=== PATIENT | male | born 1975 | race Caucasian/White ===

== ENCOUNTER 2018-06-06 07:47 | Outpatient (CLI) | payer BC, SELFPAY ==
[2018-06-06 09:36] LABS: Cholesterol 155 mg/dL (50-200); HDL Cholesterol 26 mg/dL (40-60); LDL CHOLESTEROL 93 mg/dL (<100); Triglyceride 228 mg/dL (30-150)
== END 2018-06-06 08:07 ==
PROVIDERS: PCP Nurse Practitioner; Visit Provider Nurse Practitioner
DX: E78.5 Hyperlipidemia, unspecified (principal)
CPT/HCPCS: 36415; 80061; 83721

== ENCOUNTER 2020-05-18 11:32 | Emergency (ER) | payer BC, SELFPAY ==
[2020-05-18] VITALS (39 sets, daily range): BP systolic 120–163; BP diastolic 64–88; PULSE 71–90; RESP 8–26; TEMP 37; O2SAT 94–97
--- NOTE | 2020-05-18 11:45 | RT.EKG_ITS ---
APPROVED REPORT Exam: Resting ECG Patient Location: E HR:92 bpm ECG Measurements Heart Rate 92 AXIS LA 169 P 52 QRSd 110 QRS 47 QT 377 T 12 QTc 465 Conclusion Sinus rhythm...normal P axis, V-rate 60- 99
--- NOTE | 2020-05-18 12:15 | DI.RAD_ITS ---
EXAM: XR CHEST 2V PA LATERAL CLINICAL HISTORY: chest pain TECHNIQUE: 2D digital imaging was performed. COMPARISON: CR CHEST 2 VIEWS PA,LAT from 03/26/2017 FINDINGS: MEDIASTINUM: Normal. HEART: Normal. PULMONARY VASCULATURE: Normal. LUNGS: Clear. PLEURAL SPACE: No pleural effusion or pneumothorax. BONE:Within normal limits for the patient's age. OTHER FINDINGS:Normal. IMPRESSION: No acute pulmonary findings. DATA REPOSITORY: RADIATION DOSE DELIVERED:
--- NOTE | 2020-05-18 12:38 | W.ED.GENAD ---
Discharge Plan Disposition Patient Disposition: HOME Condition: Stable Discharge Details Clinical Impression: Atypical chest pain Primary Care Provider: Ariane Joy ED Provider: Reji Franklin Home Meds and New Rx's Prescriptions: Continued atorvastatin 20 mg tablet 20 mg PO QHS Qty: 90 RF: 3 amlodipine 10 mg tablet 10 mg PO DAILY Qty: 90 RF: 3 metoprolol succinate 100 mg tablet extended release 24 hr 100 mg PO DAILY Qty: 90 RF: 3 olmesartan-hydrochlorothiazide 40-12.5 mg tablet 1 tab PO DAILY Qty: 90 RF: 3 aspirin [Lite Coat Aspirin] 325 MG tablet 325 mg PO DAILY Qty: 100 RF: 0 Discharge Instructions Instructions: Chest Pain (ED) Additional Instructions: continue your medication as previous directed return sooner for new or worsening symptoms Referrals: Ariane Joy NP [Primary Care Provider] - Medical Decision Making <Linda Abrams NP - Last Filed: 05/18/20 14:57> patient presents with brief episodes of pain in left chest, does not sound cardiac in nature, EKG unremarkable, read by Dr Franklin. will grab cardiac labs, added ddimer although PE low on diff list also. father of AAA in his 50's, unlikely cause of patients pain today. chest xray unremarkable. given asa 324 mg x1. vitals stable. possible tachy dysrhythmia but EKG and cardiac monitoring shows normal sinus rhythm. labs all reviewed and unremarkable. will repeat troponin in 3 hours. Medical Records Medical records reviewed: Yes I reviewed the patient's medical records. Lab Data Lab results reviewed: Yes I reviewed the patient's lab results. Lab results narrative: Laboratory Tests Range/Units 05/18/20 05/18/20 05/18/20 12:35 12:35 12:35 WBC (4.4-10.8) 10^3/uL 9.93 RBC (4.36-5.78) 10^6/uL 5.85 H Hgb (13.5-17.5) g/dL 17.1 Hct (40.0-50.0) % 50.1 H MCV (80-95) fL 85.6 MCH (27.0-33.0) pg 29.2 MCHC (32.0-36.0) % 34.1 RDW (11.8-14.1) % 13.5 Plt Count (130-400) 10^3/uL 289 MPV (8.0-11.0) fL 9.2 Immature Gran % 0.8 Neutrophils % 60.5 Lymphocytes % 26.4 Monocytes % 9.9 Eosinophils % 1.7 Basophils % 0.7 Nucleated RBC % % 0 Absolute Neutrophils (1.2-6.7) 10^3/uL 6.01 Absolute Lymphocytes (1.2-3.4) 10^3/uL 2.62 Absolute Monocytes (0.1-0.8) 10^3/uL 0.98 H Absolute Eosinophils (0.0-0.7) 10^3/uL 0.17 Absolute Basophils (0.0-0.2) 10^3/uL 0.07 D-Dimer (<500) ng/mlFEU 322 Sodium (136-145) mmol/L 135 L Potassium (3.5-5.1) mmol/L 3.7 Chloride (98-107) mmol/L 100 Carbon Dioxide (21.0-32.0) mmol/L 27.7 Anion Gap (3-11) mmol/L 7.3 BUN (7-18) mg/dL 17 Creatinine (0.70-1.30) mg/dL 1.28 Estimated GFR/1.73 m2 (mL/min/1.73m2) >= 60.00 Glucose (74-106) mg/dL 107 H Calcium (8.5-10.1) mg/dL 9.5 Magnesium (1.8-2.4) mg/dL 2.3 Total Bilirubin (0.2-1.0) mg/dL 0.4 AST (15-37) U/L 19 ALT (16-63) U/L 40 Alkaline Phosphatase (46-116) U/L 51 Troponin I (<0.06) ng/mL < 0.05 Total Protein (6.4-8.2) g/dL 8.3 H Albumin (3.4-5.0) g/dL 4.3 <Reji Franklin MD - Last Filed: 05/18/20 16:14> Patient seen, examined, discussed with Ms. Abrams. Remained symptom-free, repeat troponin obtained and negative. He will be discharged home. HPI <Linda Abrams NP - Last Filed: 05/18/20 14:57> General Date/Time Provider Initiated Documentation: 05/18/20 11:56. Limitations to Documentation: no limitations. Information obtained by: patient. HPI Narrative: onset on left sided chest pain that radiates from clavicle down, lasting approx 10 seconds 2 episodes back to back while standing. states he may have felt a little diaphoretic which quickly subsided. he denies nausea or shortness of breath. presents pain free. states he felt like his heart was beating fast after but that resolved spontaneously. reports one similar episode where he presented the [facility] [place] [facility] and had a cardiac work up including stress test which was negative. he denies smoking history, diabetes or dyslipidemia, takes 4 'blood pressure' meds and states he is out of one for the past week. denies fever cough or recent illness Related Data Home Medications Medication Instructions Recorded Confirmed aspirin [Lite Coat Aspirin] 325 mg PO DAILY #100 tab 03/27/17 05/18/20 atorvastatin 20 mg tablet 20 mg PO QHS #90 tab 01/05/19 05/18/20 amlodipine 10 mg tablet 10 mg PO DAILY #90 tab 01/09/20 05/18/20 metoprolol succinate 100 mg 100 mg PO DAILY #90 tab.er.24h 03/28/20 05/18/20 tablet,extended release 24 hr olmesartan 40 1 tab PO DAILY #90 tab-cap 03/28/20 05/18/20 mg-hydrochlorothiazide 12.5 mg tablet Previous Rx's Medication Instructions Recorded aspirin [Lite Coat Aspirin] 325 mg PO DAILY #100 tab 03/27/17 atorvastatin 20 mg tablet 20 mg PO QHS #90 tab 01/05/19 amlodipine 10 mg tablet 10 mg PO DAILY #90 tab 01/09/20 metoprolol succinate 100 mg 100 mg PO DAILY #90 tab.er.24h 03/28/20 tablet,extended release 24 hr olmesartan 40 1 tab PO DAILY #90 tab-cap 03/28/20 mg-hydrochlorothiazide 12.5 mg tablet Allergies Allergy/AdvReac Type Severity Reaction Status Date / Time lisinopril Allergy Intermediate hives Verified 05/18/20 12:17 Penicillins Allergy Intermediate rash Verified 05/18/20 12:17 General Stated Complaint: Chest Pain DAINA: 2 Review of Systems <Linda Abrams NP - Last Filed: 05/18/20 14:57> All systems reviewed & are unremarkable except as noted in HPI and below Constitutional Constitutional: Denies fever(s) ENT Ears, Nose, Mouth, and Throat: Denies vertigo and Denies dizziness Cardiovascular Cardiovascular: Reports chest pain, Reports chest pain at rest, Denies lightheadedness, Denies dyspnea and Denies dyspnea on exertion Respiratory Respiratory: Denies cough, Denies dyspnea and Denies dyspnea on exertion Gastrointestinal Gastrointestinal: Denies abdominal pain, Denies nausea and Denies vomiting Musculoskeletal Musculoskeletal: Denies arthralgias Integumentary/Breasts Skin/Breast: Denies lesions Neurologic Neurologic: Denies confusion, Denies vertigo and Denies dizziness Psychiatric Psychiatric: Denies confusion PFSH <Linda Abrams NP - Last Filed: 05/18/20 14:57> Medical History (Updated 05/18/20 @ 13:51 by Linda Abrams NP) Chest discomfort Went to ED, 2011. No abn per EKG, Echo. Stress echo (75% EF)(02/16/12). HLD (hyperlipidemia) HTN (hypertension) Morbid obesity Surgical History Harold tooth extraction Family History Mother , STOMACH CA at age 51. Alcohol abuse Mental disorder Lung cancer Smoker Father , AAA at age 54. Aortic aneurysm Smoker Sister No problems noted. Other Personal history of malignant neoplasm Social History (Updated 06/13/18 @ 09:34 by Indy Mcgowan RN) Smoking/Tobacco Use Status: Never Smoking risk assessment performed?: Yes Alcohol Intake: never Drug use: Never Caregiver/Support person: No Household members: none Housing: house Number of Children: 0 current occupation: finance at [employer] Pets and animals: Yes Pets and animals: cat(s) What type of physical activity do you participate in: none Seatbelt use: always Do you feel safe at home: Yes Do you feel safe in your relationship?: Yes Exam <Linda Abrams NP - Last Filed: 05/18/20 14:57> Const General: cooperative, healthy appearing, comfortable and no acute distress Nutritional Appearance: obese Orientation: alert, awake and oriented x3 HENMT Head: normal to inspection, normocephalic and atraumatic Mouth: oral mucosae normal Resp Effort & Inspection: normal respiratory effort Auscultation: clear to auscultation bilaterally Cardio Rate: regular rate Rhythm: regular rhythm GI Inspection: normal to inspection Palpation: soft Auscultation: normal bowel sounds Skin General skin exam: no rashes or lesions noted Neuro General: patient alert, patient awake, patient oriented x3, moves all extremities and no focal motor deficits Extrem General: normal to inspection and full ROM Course <Linda Abrams NP - Last Filed: 05/18/20 14:57> Vital Signs Vital signs: Vital Signs Temperature 37 C 05/18/20 12:05 Pulse 90 05/18/20 12:05 Respiratory Rate 18 05/18/20 12:05 Blood Pressure 152/86 H 05/18/20 12:05 Pulse Oximetry 97 05/18/20 12:05 Temperature 37 C 05/18/20 12:05 Temperature Source Temporal Artery Scan 05/18/20 12:05 Pulse 90 05/18/20 12:05 Respiratory Rate 18 05/18/20 12:05 Blood Pressure 152/86 H 05/18/20 12:05 Blood Pressure Position Supine 05/18/20 12:05 Pulse Oximetry 97 05/18/20 12:05 Oxygen Delivery Method Room Air 05/18/20 12:05 Oxygen Flow Rate 0 05/18/20 12:05 Pain Level 0 05/18/20 12:05 Sign Out <Linda Abrams NP - Last Filed: 05/18/20 14:57> Sign Out Data: Sign Out Comment: trop pending Last updated by Linda Abrams NP at 05/18/20 14:37
[2020-05-18 12:43] LABS: Abs Immature Grans 0.08 10^3/uL (0.0-0.06); Absolute Basophil Count 0.07 10^3/uL (0.0-0.2); Absolute Eosinophil Count 0.17 10^3/uL (0.0-0.7); Absolute Lymphocyte Count 2.62 10^3/uL (1.2-3.4); Absolute Monocyte Count 0.98 10^3/uL (0.1-0.8); Absolute Neutrophil Count 6.01 10^3/uL (1.2-6.7); Basophils % 0.7; Eosinophils % 1.7; HCT 50.1 % (40.0-50.0); HGB 17.1 g/dL (13.5-17.5); Immature Grans % 0.8; Lymphocytes % 26.4; MCH 29.2 pg (27.0-33.0); MCHC 34.1 % (32.0-36.0); MCV 85.6 fL (80-95); MPV 9.2 fL (8.0-11.0); Monocytes % 9.9; Neutrophils % 60.5; Nucleated RBC 0 %; Platelet Count 289 10^3/uL (130-400); RBC 5.85 10^6/uL (4.36-5.78); RDW 13.5 % (11.8-14.1); RDW-SD 41.8 fL; WBC 9.93 10^3/uL (4.4-10.8)
[2020-05-18] MEDS: Aspirin 81 MG CHEW 324 MG CH (13:06)
[2020-05-18 13:11] LABS: ALT 40 U/L (16-63); AST 19 U/L (15-37); Albumin 4.3 g/dL (3.4-5.0); Alkaline Phosphatase 51 U/L (46-116); Anion Gap 7.3 mmol/L (3-11); BUN 17 mg/dL (7-18); Bilirubin, Total 0.4 mg/dL (0.2-1.0); CO2 27.7 mmol/L (21.0-32.0); CREATININE 1.28 mg/dL (0.70-1.30); Calcium 9.5 mg/dL (8.5-10.1); Chloride 100 mmol/L (98-107); Glucose 107 mg/dL (74-106); Magnesium 2.3 mg/dL (1.8-2.4); Potassium 3.7 mmol/L (3.5-5.1); Sodium 135 mmol/L (136-145); Total Protein 8.3 g/dL (6.4-8.2)
[2020-05-18 13:12] LABS: Troponin I < 0.05 ng/mL (<0.06)
--- NOTE | 2020-05-18 13:20 | DI.VRAD_ITS ---
PROCEDURE INFORMATION: Exam: XR Chest, 2 Views Exam date and time: 05/18/2020 12:23 PM Age: 44 years old Clinical indication: Other: Cp TECHNIQUE: Imaging protocol: XR of the chest Views: 2 views. COMPARISON: CR CHEST 2 VIEWS PA,LAT 03/26/2017 5:49 PM FINDINGS: Lungs: Unremarkable. No consolidation. Pleural space: Unremarkable. No pleural effusion. No pneumothorax. Heart/Mediastinum: Unremarkable. No cardiomegaly. Bones/joints: Unremarkable. IMPRESSION: No acute findings. Dictated and Authenticated by: Charlie Munoz MD. Ordering:RICARDO Mckeon MD
[2020-05-18 13:27] LABS: D-Dimer 322 ng/mlFEU (<500)
[2020-05-18 16:12] LABS: Troponin I < 0.05 ng/mL (<0.06)
== END 2020-05-18 16:32 | disposition home or self-care (01) ==
PROVIDERS: Nurse Practitioner Acute Care; Emergency Provider Emergency Medicine; PCP Nurse Practitioner
DX: R07.89 Other chest pain (principal); Z82.49 Family history of ischemic heart disease and other diseases of the circulatory system; I10 Essential (primary) hypertension
CPT/HCPCS: 80053; 93005; 99284; 71046; 83735; 84484; 85025; 85379; 93010; 99283

== ENCOUNTER 2020-07-30 01:04 | Outpatient (CLI) | payer BC, SELFPAY ==
--- NOTE | 2020-07-30 08:05 | DI.US_ITS ---
APPROVED REPORT EXAM: Comprehensive 2D, Doppler, and color-flow Echocardiogram Patient Location: Out-Patient Aircraft Detail Draftsperson: Areli James RDCS (AE) Indications: LVH, H/O TIA Other Information Study Quality: Fair. Technically limited study due to body habitus. Conclusion Moderate concentric left ventricular hypertrophy. Normal left ventricular chamber size. Estimated eje ction fraction is 60%. There are no segmental wall motion abnormalities Borderline dilated right ventricle Both atria are normal in size There is no hemodynamically significant valvular disease Wall motion Left Ventricle The left ventricle is normal size. The left ventricular systolic function is normal. The left ventric ular ejection fraction is within the normal range. Moderate concentric left ventricular hypertrophy. There is normal LV segmental wall motion. There is no ventricular septal defect visualized. LVEF is 6 0%. Right Ventricle Right ventricle is borderline dilated. Right ventricular systolic function is grossly normal. Atria The left atrium size is normal. The right atrium size is normal. The interatrial septum is intact wit h no evidence for an atrial septal defect. Aortic Valve The aortic valve is normal in structure. Aortic valve is trileaflet. No aortic regurgitation is prese nt. Mitral Valve The mitral valve is normal in structure. No evidence of mitral valve stenosis. Trace mitral regurgita tion. Tricuspid Valve The tricuspid valve is normal in structure. There is no tricuspid valve stenosis. Trace tricuspid reg urgitation. Unable to assess PA pressure. Pulmonic Valve The pulmonary valve is normal in structure. There is no pulmonic valvular stenosis. Trace pulmonic re gurgitation. Great Vessels The aortic root is normal in size. The ascending aorta is normal in size. Aortic arch is normal in ca liber. IVC is normal in size and collapses >50% with inspiration. Pericardium There is no pericardial effusion. 2D Dimensions IVSD d PLAX 1.51 cm M: 0.6-1.2 LV Vol A2C d MOD 89.0 mL LVPW d PLAX 1.50 cm M: 0.6 - 1.2 LV Vol A4C d MOD 102.8 mL LVID d PLAX 4.68 cm M: 4.2 - 5.8 LV EF A4C MOD 47.1 % LVDs 3.40 cm M: 2.5 - 4.0 LV EF A2C MOD 50.0 % Ao Root d 3.09 cm M: 3.1 - 3.7 LV EF Biplane MOD 46.8 % RA Area A4C 15.68 cm2 SV 45.34 mL RA Vol/ BSA A4C s A-L 16.9 mL/m2 SV Index 18.24 mL/m2 Ao Asc Diam d 3.27 cm M: 2.6 - 3.4 LV EF Teichholz 52.6 % LVEF (Cao's) 46.78 % M: 52 - 72 LV Volume 67.96 mL M: 62 - 150 LV Volume Index 27.40 mL/m2 M: 34 - 74 LV Vol Biplane MOD 96.9 mL FS 26.95 % LV Diastology E/A Ratio 1.1 MV E Vmax 0.74 (0.4-1.3 m/s) MV A Vmax 0.65 (0.4-1.3 m/s) MV E/A Ratio 1.12 Aortic Valve LVOT Area 3.70 cm2 LVOT Vmax 1.11 m/s LVOT Mean Bari. 0.77 m/s LVOT Peak Grad 4.9 mmHg LVOT Mean Grad 2.7 mmHg LVOT VTI 0.221 m LVOT Diam s 2.15 cm LVOT SV 81.95 mL Mitral Valve MV DT 209 (160-240 msec) MV PHT 60 msec MV Area PHT 3.64 cm2 MV VTI 0.292 m MV VTI Annulus 0.289 m MV Area VTI 2.78 (4.0-6.0 cm2) Pulmonary Valve PV Vmax 0.87 (0.5-1.5 m/s) RVOT Peak Gr. 1.58 mmHg PV Peak Grad 3.0 mmHg RVOT Mean Gr. 0.80 mmHg PV Mean Grad 2.0 mmHg RVOT VTI 0.123 m PV VTI 0.189 m RVOT Vmax 0.63 m/s
== END 2020-07-30 01:24 ==
PROVIDERS: PCP Nurse Practitioner; Visit Provider Nurse Practitioner
DX: I51.7 Cardiomegaly (principal); Z86.73 Personal history of transient ischemic attack (TIA), and cerebral infarction without residual deficits
CPT/HCPCS: 93306

== ENCOUNTER 2020-12-26 02:48 | Outpatient (CLI) | payer BC, SELFPAY ==
[2020-12-26 09:00] LABS: ALT 91 U/L (16-63); AST 123 U/L (15-37); Albumin 4.2 g/dL (3.4-5.0); Alkaline Phosphatase 47 U/L (46-116); Anion Gap 7.1 mmol/L (3-11); BUN 22 mg/dL (7-18); Bilirubin, Total 0.5 mg/dL (0.2-1.0); CO2 30.9 mmol/L (21.0-32.0); CREATININE 1.4 mg/dL (0.70-1.30); Calcium 9.2 mg/dL (8.5-10.1); Calculated LDL 51 mg/dL (<100); Chloride 102 mmol/L (98-107); Cholesterol 110 mg/dL (<200); Estimated GFR 55.05 (mL/min/1.73m2); Glucose 87 mg/dL (74-106); HDL Cholesterol 29 mg/dL (40-60); Potassium 3.5 mmol/L (3.5-5.1); Sodium 140 mmol/L (136-145); Total Protein 7.1 g/dL (6.4-8.2); Triglyceride 152 mg/dL (<150)
== END 2020-12-26 02:49 | disposition home or self-care (01) ==
LOC: LBO 02:48
PROVIDERS: PCP Nurse Practitioner; Visit Provider Nurse Practitioner
DX: I10 Essential (primary) hypertension (principal); R73.01 Impaired fasting glucose; I51.7 Cardiomegaly; E66.01 Morbid (severe) obesity due to excess calories; E78.5 Hyperlipidemia, unspecified
CPT/HCPCS: 36415; 80053; 80061

== ENCOUNTER 2021-01-07 03:19 | Outpatient (CLI) | payer BC, SELFPAY ==
[2021-01-07 16:31] LABS: ALT 58 U/L (16-63); AST 30 U/L (15-37); Albumin 4.4 g/dL (3.4-5.0); Alkaline Phosphatase 48 U/L (46-116); Anion Gap 11.3 mmol/L (3-11); BUN 21 mg/dL (7-18); Bilirubin, Total 0.7 mg/dL (0.2-1.0); CO2 26.7 mmol/L (21.0-32.0); CREATININE 1.5 mg/dL (0.70-1.30); Calcium 9.5 mg/dL (8.5-10.1); Chloride 103 mmol/L (98-107); Estimated GFR 50.84 (mL/min/1.73m2); GGT 44 U/L (15-85); Glucose 146 mg/dL (74-106); Potassium 3.4 mmol/L (3.5-5.1); Sodium 141 mmol/L (136-145); Total Protein 7.3 g/dL (6.4-8.2)
[2021-01-07 18:14] LABS: Bilirubin, Direct 0.2 mg/dL (0.0-0.2)
[2021-01-08 11:35] LABS: Hepatitis A Antibody IgM Negative (Negative); Hepatitis B Core Antibody Negative (Negative); Hepatitis B surface Ag Negative (Negative); Hepatitis C Ab w Rflx HCV PCR Negative (Negative)
== END 2021-01-07 03:20 | disposition home or self-care (01) ==
LOC: LBO 03:19
PROVIDERS: PCP Nurse Practitioner; Visit Provider Nurse Practitioner
DX: R94.5 Abnormal results of liver function studies (principal); R94.4 Abnormal results of kidney function studies; Z11.59 Encounter for screening for other viral diseases
CPT/HCPCS: 36415; 80048; 80076; 86704; 86709; 86803; 87340; 82977

== ENCOUNTER 2021-12-19 01:37 | Outpatient (CLI) | payer BC, SELFPAY ==
[2021-12-19 08:31] LABS: HCT 47.4 % (40.0-50.0); HGB 16.2 g/dL (13.5-17.5); MCHC 34.2 % (32.0-36.0); MCV 88 fL (80-95); Platelet Count 266 10^3/uL (130-400); RDW 13.2 % (11.8-14.1); RDW-SD 42.2 fL; WBC 10.05 10^3/uL (4.4-10.8)
[2021-12-19 09:59] LABS: ALT 46 U/L (16-63); AST 25 U/L (15-37); Albumin 4.2 g/dL (3.4-5.0); Alkaline Phosphatase 52 U/L (46-116); Anion Gap 10.6 mmol/L (3-11); BUN 23 mg/dL (7-18); Bilirubin, Total 0.4 mg/dL (0.2-1.0); CO2 27.4 mmol/L (21.0-32.0); CREATININE 1.4 mg/dL (0.70-1.30); Calcium 9.3 mg/dL (8.5-10.1); Calculated LDL 76 mg/dL (<100); Chloride 103 mmol/L (98-107); Cholesterol 184 mg/dL (<200); Estimated GFR 55.05 (mL/min/1.73m2); Glucose 107 mg/dL (74-106); HDL Cholesterol 33 mg/dL (40-60); Potassium 4.4 mmol/L (3.5-5.1); Sodium 141 mmol/L (136-145); Total Protein 7.3 g/dL (6.4-8.2); Triglyceride 378 mg/dL (<150)
== END 2021-12-19 01:38 | disposition home or self-care (01) ==
LOC: LBO 01:37
PROVIDERS: PCP Nurse Practitioner; Visit Provider Nurse Practitioner
DX: E78.5 Hyperlipidemia, unspecified (principal); R73.01 Impaired fasting glucose; R94.4 Abnormal results of kidney function studies
CPT/HCPCS: 36415; 80053; 80061; 85027